=== PATIENT | male | born 1955 | race Caucasian/White ===

== ENCOUNTER 2023-04-08 08:07 | Day surgery (SDC) | payer OTHER, SELFPAY ==
[2023-04-08] VITALS (14 sets, daily range): BP systolic 128–152; BP diastolic 73–95; PULSE 50–58; RESP 12–16; TEMP 36.1–37; O2SAT 95–100; BMI 23.6
[2023-04-08] MEDS: LACTATED RINGERS 1000 ML 1,000 ML 100 ML IV (08:40)
[2023-04-08] MEDS: SODIUM CHLORIDE 0.9 % (FLUSH) 10 ML SYRINGE IVF (08:40)
--- OUTSIDE RECORDS SUMMARY | 2023-04-08 08:46 | XMS_ITS | Clinical Summary ---
Author Name Unknown Organization [facility] Address [place], [place] [address] Care Team Providers Care Telephone Operator Chief Name Role Phone Landon Grimaldo MD Primary Care Provider [phone] Allergies No known active allergies Medications Medication Sig Dispensed Refills Start Date End Date Status cholecalciferol (VITAMIN D) 1,000 unit capsule Take 1 capsule by mouth once daily. 0 06/30/2017 Active atorvastatin (LIPITOR) 40 mg tabletIndications:Hy perlipidemia, unspecified hyperlipidemia type Take 1 Tablet (40 mg) by mouth at bedtime. 90 Tablet 3 07/08/2022 Active metoprolol succinate (TOPROL XL) 25 mg Sustained-Release tabletIndications:NS VT (nonsustained ventricular tachycardia) (HC) TAKE ONE AND ONE-HALF TABLETS [37.5MG] BY MOUTH ONCE A DAY AT BEDTIME 135 Tablet 2 03/22/2023 Active metoprolol succinate (TOPROL XL) 25 mg Sustained-Release tabletIndications:NS VT (nonsustained ventricular tachycardia) (HC) Take 1.5 Tablets (37.5 mg) by mouth once daily. At bedtime 135 Tablet 3 04/09/2022 4 Discontinued Active Problems Problem Noted Date Diagnosed Date Hydrocele 01/30/2023 NSVT (nonsustained ventricular tachycardia) 04/2021 Aortic root enlargement 02/05/2021 Adenomatous colon polyp 03/23/2013 Overview: Colonoscopy 03/2013 polyp repeat in 5 years Colonoscopy 10/2018 hyperplastic polyp, repeat in 5 years Sebaceous cyst 01/11/2013 Overview: Upper mid back; observe Family history of colon cancer 01/11/2013 Inguinal hernia 01/11/2013 Overview: Left side; very subtle. Suggest observation. Mixed hyperlipidemia 02/18/2007 Resolved Problems Problem Noted Date Diagnosed Date Resolved Date NSVT (nonsustained ventricular tachycardia) 01/16/2022 02/14/2022 Routine general medical exam ination at a health care facility 02/03/2007 06/30/2017 Overview: colonoscopy 04/2005 Recheck 5 yrs Encounters Date Type Department Care Team Description 03/20/2023 Refill [facility] [address] [place] [address] Landon Grimaldo MD Refill Request (Metoprolol Succinate) 03/12/2023 10:[address] Preop Visit [facility] [address] [place] [address] Kimmy Quezada DO Pre-Op Exam (Dr. Singh, 04/08/2023, Hernia left side, [facility]) 03/12/2023 Travel 03/08/2023 Travel 02/17/2023 3:[address] Office Visit [facility] [address] [place] [address] Kareen Singh MD Consult (Left inguinal hernia referred by Dr. Grimaldo) 02/17/2023 Travel 01/30/2023 9:[address] Office Visit [facility] [address] [place] [address] Landon Grimaldo MD Lump (Noticing the lump more); Immunization/Injectio n (COVID-19 vaccine) 01/29/2023 Travel from Last 3 Months Immunizations Name Administration Dates Next Due COVID-19 Vaccine Spikevax (M oderna 50mcg/0.5mL) 12YO+ [id number] Formula PF 01/30/2023 COVID-19 vaccine (Ambarella-Bio NTech 30mcg/0.3mL) 12YO+ BIVALENT CHRISS GILMORE 09/30/2022,02/14/2022 Hepatitis A (Adult) 01/11/2013,05/18/2007 Influenza, IIV3 (Age >=3 years) 01/06/2013,02/03,03/02/2003 Influenza, Inactivated AIIV4 (Age 65+ Years) Preserv Free 12/20/2022,12/27/2021,01/15/2021,2019 Influenza, Inactivated IIV3 (Age 65+ Years) Preserv Free 12/22/2018 Pneumococcal Poly,23-Valent (Pneumovax) 01/13/2020 Pneumococcal conj 13-Valent (Prevnar 13) 01/12/2019 Td (Age >=7 Years) 11/20/2005 Tdap 01/11/2013 Zoster (Shingrix-RZV, recombinant) 09/30/2017, Zoster (Zostavax-ZVL, live) 12/27/2015 Family History Medical History Relation Name Comments Cancer Father Fifi Cholangiocarcin alexander Cancer-colon Father Fifi Colon Ca Diabetes Mother Syed Other Mother Syed Dementia Cancer-prostate Neg. 1 Heart Disease Neg. 2 Relation Name Status Comments Brother 1 Abelardo Alive Brother 2 Jack Alive Father Fifi (Age 91) Mother Syed (Age 82) Neg. 1 Neg. 2 Sister 1 Flor Alive Sister 2 Natalie Alive Social History Tobacco Use Types Packs/Day Years Used Date Smoking Tobacco: Never Smokeless Tobacco: Never Tobacco Cessation:Counseling Given: Yes Alcohol Use Standard Drinks/Week Comments Yes 0 (1 standard drink = 0.6 oz pur e alcohol) occas PHQ-2 Answer Date Recorded PHQ-2 TOTAL SCORE 0 03/12/2023 Social Connections Answer Date Recorded Frequency of Communication with Friends and Fami ly 0 03/12/2023 Alcohol Use Answer Date Recorded How often do you have a drink containing alcohol ? 4 02/14/2022 How many drinks containing a lcohol do you have on a typical day when you are drinking? 0 02/14/2022 How often do you have five or more drinks on one occasion? 0 02/14/2022 Financial Resource Strain Answer Date R ecorded Difficulty of Paying Living Expenses 3 03/12/2023 Difficulty of Paying Living Expenses Not on file 03/12/2023 Food Insecurity Answer Date Recorded Worried About Running Out of Food in the Last Ye ar 1 03/12/2023 Transportation Needs Answer Date Record ed Lack of Transportation (Medical) 1 03/12/2023 Housing Stability Answer Date Recorded Unable to Pay for Housing in the Last Year 1 03/12/2023 Sex and Gender Information Value Date Recorded Sex Assigned at Male 12/01/2019 12:30 PM CDT Gender Identity Male 12/01/2019 12:30 PM CDT Sexual Orientation Straight 12/01/2019 12 :30 PM CDT Obstetrics History Last Filed Vital Signs Vital Sign Reading Time Taken Comments Blood Pressure 137/81 03/12/2023 10:[address] Pulse 48 03/12/2023 10:[address] Temperature 36.6 ??C (97.9 ??F) 07/23/2021 9:57 AM CD T Respiratory Rate 18 01/27/2019 8:[address] Oxygen Saturation 100% 03/12/2023 10: [address] Inhaled Oxygen Concentration - - Weight 79.3 kg (174 lb 12.8 oz) 023 10:[address] Height 183.6 cm (6' 0.28) 03/12/2023 1 0:[address] Body Mass Index 23.52 03/12/2023 10:[address] Plan of Treatment Upcoming Encounters Date Type Department Care Team (Late st Contact Info) Description 04/11/2023 9:[address] Office Visit [facility] [address] [place] [address] Landon Grimaldo MD [address] [place] [address] 05/16/2023 10:[address] Orders Only [facility] [address] [place] [address] 05/29/2023 4:00 PM CDT Office Visit [facility] [address] [place] [address] Aleksander Min MD [address] [facility] [address] [place] [address] Health Maintenance Due Date Last Done Comments Tetanus booster 01/11/2023 01/11/2013, 11/20/2005 Medicare Wellness for age 65+ 02/14/2023 02/14/2022, 02/05/2021 Colonoscopy through age 75 11/11/202311/10, 11/10/2018, 03/18/2013, Additional history exists BMI (ht and wt on same day) for age 18+ 03/12/2024 03/12/2023, 02/14/2022, 01/16/2022, Additional history exists Depression screening for age 12+ 03/12/2024 03/12/2023, 02/14/2022, 02/07/2021, Additional history exists Lipids for age 45-75 10/02/2027 10/01/2022, 02/14/2022, 11/14/2020, Additional history exists Hepatitis C screening for ag e 18-79 Completed 01/11/2013 Tdap Completed 01/11/2013 Zoster (shingles) series for age 50+ Completed 09/30/2017, 06/30/2017, 12/27/2015 Pneumococcal series for age 65+ Completed , 01/12/2019 Influenza for age 65+ Completed 12/20/2022 , 12/27/2021, 01/15/2021, Additional history exists COVID-19 vaccine series Completed 01/31/20 23, 09/30/2022, 02/14/2022, Additional history exists Procedures Procedure Name Priority Date/Time Associated Diagnosis Comments BASIC METABOLIC PANEL Routine 01/30/2023 10:[address] Hyperlipidemia, unspecified hyperlipidemia type PSA TOTAL (DIAGNOSTIC) Routine 01/30/2023 10:[address] Elevated PSA from Last 3 Months Results * (ABNORMAL) PSA TOTAL (DIAGNOSTIC) (01/30/2023 10:[address]) PSA TOTAL (DIAGNOSTIC) 7.44(H) <4.00 ng/mL 01/30/2023 5:[address] [facility] Blood BLOOD SPECIMEN / Unknown Venipuncture / Unknown 01/30/2023 10:[address] 01/30/2023 10:[address] [facility] - 01/30/2023 5:[address] The test method changed on 09/10/2022. If this test has been used for serial monitoring, rebaselining is recommended. Rebaselining consists of 2 measurements, collected 3-6 weeks apart. The [employer] total PSA assay is an electrochemiluminescence immunoassay ECLIA performed on the Glen Ba e immunoassay analyzers. Values obtained with different assay methods may be different and cannot be used interchangeably. Landon Grimaldo MD CHEMISTRY [facility] [address] [place] [address], * (ABNORMAL) BASIC METABOLIC PANEL (01/30/2023 10:[address]) SODIUM 147(H) 136 - 145 mmol/L 01/30/2023 5:39 PM [facility] POTASSIUM 4.6 3.5 - 5.1 mmol/L 01/30/2023 5:39 PM [facility] CHLORIDE 110(H) 98 - 107 mmol/L 01/30/2023 5:39 PM [facility] CO2,TOTAL 25 22 - 29 mmol/L 01/30/2023 5:39 PM [facility] ANION GAP 12 5 - 18 01/30/2023 5:39 PM [facility] GLUCOSE 97 70 - 99 mg/dL 01/30/2023 5:39 PM [facility] CALCIUM 9.5 8.8 - 10.2 mg/dL 01/30/2023 5:39 PM [facility] BUN 13 8 - 23 mg/dL 01/30/2023 5:39 PM [facility] CREATININE 1.20 0.70 - 1.20 mg/dL 01/30/2023 5:39 PM [facility] BUN/CREAT RATIO 11 - 20 16/202 3 5:[address] [facility] eGFR 65(L) >90 mL/min/1.7 3m2 01/30/2023 5:[address] [facility] Comment:As of 2021, eG FR is calculated by the CKD-EPI creatinine equation without race adjustment. ??eGFR can be influenced by muscle mass, exercise, and diet. ??The reported eGFR is an estimation only and is only applicable if the renal function is stable. Blood BLOOD SPECIMEN / Unknown Venipuncture / Unknown 01/30/2023 10:[address] 01/30/2023 10:[address] Landon Grimaldo MD CHEMISTRY [facility] [address] [place] [address], from Last 3 Months Care Teams Telephone Operator Chief Relationship Specialty Start Date End Date Landon Grimaldo MD [address] [place] [address] PCP - General Family Practice 01/11/13
--- OUTSIDE RECORDS SUMMARY | 2023-04-08 08:46 | XMS_ITS | Clinical Summary ---
Author Name Unknown Organization [facility] Address [address] [place] [address] Care Team Providers Care Snow Technician Name Role Phone Unassigned, Provider Primary Care Provider Unava ilable Source Comments You are receiving this document as you are listed as the primary care provider,follow-up provider, or the patient has been referred to you for consultation.This is in compliance with the Medicare and[facility] EHR Incentive Program,which states Providers who transition their patient to another setting of careor provider of care or refers their patient to another provider of care shouldprovide summary care record for each transition of care or referral. Feeding Forward Immunizations Name Administration Dates Next Due Influenza IIV4 (Quadrivalent) 0.5mL (89537) 10/2018,12/17/2017 Pfizer Monovalent 12+ Purple Top 05/19/2020,04/17 Social History Tobacco Use Types Packs/Day Years Used Date Smoking Tobacco: Never Assessed Sex and Gender Information Value Date Recorded Sex Assigned at Not on file Gender Identity Not on file Sexual Orientation Not on file Plan of Treatment Health Maintenance Due Date Last Done Comments Hep C Screening (Preventive Services) 1955 Adult Preventive Visit 09/25/1971 Cholesterol 1988 Colon Cancer Screening Plan Due 03/19/2013 03/18/2013 COVID-19 Vaccine ( season) 2022 05/19/2020, 04/28/2020 Influenza (#1) 2022 01/13/2020, 10/2018, 12/17/2017, Additional history exists DTaP/Tdap/Td (2 - Tdap) 01/11/2023 01/11/2013 HepA Aged Out 01/11/2013, 05/18/2007 No lo nger eligible based on patient's age to complete this topic Zoster/Shingles Completed 09/30/2017, 06/15, 12/27/2015 Pneumococcal 65+ Yrs Completed 01/13/2020, 01/13/20 19 HepB Aged Out No longer eligi ble based on patient's age to complete this topic Hib Aged Out No longer eligi ble based on patient's age to complete this topic IPV (Polio) Aged Out No longer eligi ble based on patient's age to complete this topic MCV4 Aged Out No longer eligi ble based on patient's age to complete this topic Care Teams Snow Technician Relationship Specialty Start Date End Date Unassigned, Provider [address] [place] [address] PCP - General 05/18/00
--- NOTE | 2023-04-08 08:49 | P.GSOP_ITS ---
Operative Note Date of procedure: 04/08/23 Pre-op diagnosis: 1. Symptomatic left inguinal hernia. Post-op diagnosis: 1. Small indirect left inguinal hernia and obliterated left inguinal floor with direct inguinal hernia. Type of Procedure: 1. Open left inguinal hernia repair with mesh. Indications: 67-year-old male was seen in clinic with an enlarging left inguinal bulge. He was initially diagnosed with a left inguinal hernia over 10 years ago. The bulge was small and was not bothering him so he did not pursue surgical repair. Most recently he noticed that the bulge was getting larger in size. Patient runs a few times a week and he can feel the bulge in the left groin. On clinical exam there is a large right-sided hydrocele that is not tender to palpation. The left testicle is not tender to palpation and there is a moderately-sized left inguinal hernia present. This hernia was reducible. Given patient's clinical history and his physical exam, an open left inguinal hernia repair with mesh was recommended. The procedure was discussed in detail. The risks associated procedure including infection, bleeding, injury to preperitoneal organs, and hernia recurrence were all discussed with the patient, and he agreed to proceed. Procedure Description: After discussing the risks and benefits of the procedure, the patient signed informed consent.? The operative site was marked and the patient was brought to the operating room and placed on the operating table in supine position.? Care was taken to pad the patient's pressure points.?? The patient was then intubated by anesthesia.?? The operative site was then prepped and draped in the usual sterile fashion.? A time-out was then performed. Surgical site was prepped and draped in sterile fashion. Site of the incision was marked with a marking pen and local anesthetic was injected. An oblique incision was made just above and medial to the left inguinal ligament. Subcutaneous tissue was dissected to external obliques. The external obliques were splayed open with direct hernia protruding through the external obliques. Superficial subcutaneous vascular branches were clamped, divided and tied with 3-0 Vicryl ties. Small incision was made through the external oblique aponeurosis with scalpel. I then used Metzenbaum scissors to dissect under external obliques and extend my incision. Mosquito clamps were placed on the edges of external oblique exposing the inguinal floor. The left Ilioinguinal nerve was not clearly identified. I then identified the spermatic cord and the hernia sac. I bluntly dissected subcutaneous tissues in order to place Jose L drain around the cord structures. Cremasteric fibers were peeled off and dissected off the hernia sac and cord structures. There was a small indirect hernia sac that was covered by preperitoneal fat. The inguinal floor was obliterated with preperitoneal structures easily protruding through the inguinal floor. The hernia sac was then dissected off preperitoneal fat and spermatic cord. Hemostasis was achieved with cautery and Vicryl ties. The indirect hernia sac was incised and examined from the inside. No intraabdominal organs were incarcerated in the hernia sac. A stitch using 2-0 Vicryl was placed near the base of the hernia sac through the sac and the hernia sac tied off. Hernia sac was then excised and not sent to pathology. The cut edge of the hernia sac was then oversewn with a running locking 2-0 Vicryl suture. This was then pushed into preperitoneal space through the internal ring. An extra large Bard mesh plug was inserted into the obliterated inguinal floor adjacent to the internal ring and secured to the adjacent tissues with interrupted 0-0 Neurolon sutures. A Bard mesh onlay was also used for hernia repair. The mesh onlay was sutured in place with interrupted 0-0 Neurolon sutures to the conjoint tendon medially and shelving edge laterally, pubic tubercle inferiorly. Simple interrupted sutures were placed using 0-0 Neurolon at the base of internal inguinal ring making it only large enough to fit a tip of one finger through. Spermatic cord was placed back into scrotum. [place] drain was removed. External oblique aponeurosis was closed with a running 3-0 Vicryl. Additional local anesthetic was injected into subcutaneous tissues. Seb's fascia and subcutaneous tissue was re-approximated with interrupted Vicryl stitches. Skin incision was closed with 4-0 Monocryl subcuticular stitch. Steri strips and sterile dressing were applied over incision. All counts were correct at the end of the case. Patient tolerated this procedure well and was transferred to PACU in stable condition. Findings: Obliterated inguinal floor and a small indirect hernia sac. The hernia was repaired with mesh plug and mesh onlay. Implants: Bard mesh plug and mesh onlay. Anesthesia: MAXWELL Surgeon: Kareen Singh MD Estimated blood loss (mL): 10 Condition: stable Disposition: PACU
--- NOTE | 2023-04-08 08:49 | W.PM.H&PU ---
History & Physical Update History & Physical Update H&P Reviewed and patient assessed: No changes noted
[2023-04-08] MEDS: CEFAZOLIN 2 GM INJ IVP (09:28)
[2023-04-08] MEDS: BUPIVACAINE 0.25% 30 ML INJECTION (10:55)
--- NOTE | 2023-04-08 11:11 | W.ANESCHARGE ---
Anesthesia Charges Start Date/Time Anesthesia Start Date: 04/08/23 Anesthesia Start Time: 09:14 Stop Date/Time Anesthesia Stop Date: 04/08/23 Anesthesia Stop Time: 11:11
--- NOTE | 2023-04-08 11:43 | SUR.PHASEI ---
patient met discharge criteria per anesthesia
== END 2023-04-08 13:03 | disposition home or self-care (01) ==
PROVIDERS: PCP Surgery; Visit Provider Surgery
PROC: (CPT 49505; principal; 2023-04-08 09:15)
DX: K40.90 Unilateral inguinal hernia, without obstruction or gangrene, not specified as recurrent (principal)
CPT/HCPCS: 49505; 00830; C1781; J0665; J0690; J1100; J1170; J1885; J2405; J2704; J3010; J7120